=== PATIENT | female | born 1975 | race Caucasian/White ===

== ENCOUNTER 2016-12-09 09:08 | Emergency (ER) | payer OTHER ==
[2016-12-09 09:08] VITALS: BMI 32.0
[2016-12-09 09:21] VITALS: TEMP 98.8; O2SAT 98
--- NOTE | 2016-12-09 09:42 | C.PDOC ---
Time Seen by Provider: 12/09/16 09:40 Chief Complaint (Nursing): Female Genitourinary History Per: Patient History/Exam Limitations: no limitations Onset/Duration Of Symptoms: Days Current Symptoms Are (Timing): Worse Severity: Severe Pain Scale Rating Of: 3 Quality Of Discomfort: Burning, Other (itching ) Associated Symptoms: Urinary Symptoms (dysuria) Alleviating Factors: None Recent travel outside of the [place]: No Abnormal Vaginal Bleeding: No Past Medical History Vital Signs: Last Vital Signs Temp 98.8 F 12/09/16 09:19 Pulse 81 12/09/16 09:19 Resp 16 12/09/16 09:19 BP 120/83 12/09/16 09:19 Pulse Ox 98 12/09/16 09:19 - Medical History PMH: Anemia, Bronchitis, Sexually Transmitted Disease (chlamydia 2015) Other Surgeries: total abdominal Hysterectomy w/salpingectomy 08/2016 - [facility] Procedures RELEASE UTERINE SUPPORTING STRUCTURE, OPEN APPROACH (08/29/16) RESECTION OF BILATERAL FALLOPIAN TUBES, OPEN APPROACH (08/29/16) RESECTION OF CERVIX, OPEN APPROACH (08/29/16) RESECTION OF UTERUS, OPEN APPROACH (08/29/16) Family History: States: Unknown Family Hx - Social History Hx Tobacco Use: No Hx Alcohol Use: Yes Hx Substance Use: No - Immunization History Hx Tetanus Toxoid Vaccination: No Hx Influenza Vaccination: No Hx Pneumococcal Vaccination: No ED Course And Treatment O2 Sat by Pulse Oximetry: 98
--- NOTE | 2016-12-09 09:44 | C.PDOC ---
History Of Present Illness <Yulia Basurto - Last Filed: 12/09/16 11:29> <CarrollBambi - Last Filed: 12/09/16 11:35> 41 year old female with PMHx of chlamydia presents with complaint of vaginal itching and abnormal discharge for 1 week. The patient states that she applied OTC monistat cream for the past 4 days but her symptoms have not improved. Patient states that she is currently not sexually active. She came today because her discomfort was too much today. Also complains of pain with urination. Denies hematuria and pyuria. Patient had chlamydia one year ago and was given oral antibiotics. She states that she was checked and came back negative for GC/chlamydia after treatment. Patient states her symptoms are similar to past event. Denies fever, chills, ulcer, pain, and change in bowel movements. She is s/p total hysterectomy on 08/2016 and denies vaginal bleeding. She last saw her car dumper operator Dr Downing in 09/2016. (Yulia Basurto) History Per: Patient History/Exam Limitations: no limitations Onset/Duration Of Symptoms: Days Current Symptoms Are (Timing): Worse Severity: Severe Pain Scale Rating Of: 0 Quality Of Discomfort: Burning, Other (itching ) Associated Symptoms: Urinary Symptoms (dysuria). denies: Fever, Chills Alleviating Factors: None Recent travel outside of the [place]: No <Yulia Basurto - Last Filed: 12/09/16 11:29> <CarrollBambi - Last Filed: 12/09/16 11:35> Time Seen by Provider: 12/09/16 09:30 Chief Complaint (Nursing): Female Genitourinary Past Medical History Reviewed: Historical Data, Nursing Documentation, Vital Signs - Medical History PMH: Anemia, Bronchitis, Sexually Transmitted Disease (chlamydia 2015) Other Surgeries: total abdominal Hysterectomy w/salpingectomy 08/2016 Family History: States: Unknown Family Hx - Social History Hx Tobacco Use: No Hx Alcohol Use: Yes Hx Substance Use: No - Immunization History Hx Tetanus Toxoid Vaccination: No Hx Influenza Vaccination: No Hx Pneumococcal Vaccination: No <BretbambiHadleyYulia - Last Filed: 12/09/16 11:29> Vital Signs: Last Vital Signs Temp 98.8 F 12/09/16 09:19 Pulse 81 12/09/16 09:19 Resp 16 12/09/16 09:19 BP 120/83 12/09/16 09:19 Pulse Ox 98 12/09/16 11:34 - [facility] Procedures RELEASE UTERINE SUPPORTING STRUCTURE, OPEN APPROACH (08/29/16) RESECTION OF BILATERAL FALLOPIAN TUBES, OPEN APPROACH (08/29/16) RESECTION OF CERVIX, OPEN APPROACH (08/29/16) RESECTION OF UTERUS, OPEN APPROACH (08/29/16) Review Of Systems Except As Marked, All Systems Reviewed And Found Negative. Constitutional: Negative for: Fever, Chills Gastrointestinal: Negative for: Nausea, Vomiting, Abdominal Pain Genitourinary: Positive for: Dysuria, Vaginal Discharge. Negative for: Frequency, Incontinence, Hematuria, Vaginal Bleeding, Pelvic Pain <Yulia Basurto - Last Filed: 12/09/16 11:29> ED Course And Treatment O2 Sat by Pulse Oximetry: 98 Progress Note: Speculum exam performed with RN buffing and sueding machine operator present in the room. GC/chlamydia and vaginal culture performed. PE: cottage-cheese discharge in vaginal vault, cervix not present, no blood. Outer labia normal in appearance, no rash/skin changes. Reevaluation Time: 10:45 Reassessment Condition: Unchanged <Yulia Basurto - Last Filed: 12/09/16 11:29> Supervising Attending Note <Yulia Basurto - Last Filed: 12/09/16 11:29> - Supervising Attending Note Comment: RESIDENT - Attestation: I have personally seen and examined this patient.: Yes I have fully participated in the care of the patient.: Yes I have reviewed all pertinent clinical information, including history, physical exam and plan: Yes <Bambi Hodges - Last Filed: 12/09/16 11:35> - Notes: Notes:: DYSURIA, VAG DC AND ITCH X 1 WEEK. NO RELIEF W OTC MONISTAT X 4 DAYS. NO FEVER, OTHER ASSOC SX. PT DENIES SEX ACTIVE. EXAM ABOVE (Bambi Hodges) Disposition Discussed With : Bambi Hodges Doctor Will See Patient In The: Office Counseled Patient/Family Regarding: Studies Performed, Diagnosis, Need For Followup, Rx Given - Disposition Disposition Time: 11:34 - POA Present On Arrival: None <Yulia Basurto - Last Filed: 12/09/16 11:29> Counseled Patient/Family Regarding: Studies Performed, Diagnosis, Need For Followup, Rx Given - Disposition Disposition Time: 11:35 <Bambi Hodges - Last Filed: 12/09/16 11:35> - Disposition Referrals: Frankie Downing [Staff Provider] - Disposition: HOME/ ROUTINE Condition: GOOD Additional Instructions: Patient should follow up with her Communication Consultant Dr Downing within 7 days. She was instructed to take Diflucan in 72 hours if her symptoms do not improve. She should return to the ED if she experiences worsening of her symptoms or if she has any other concerns. She will be contacted once her vaginal and urine results return if abnormal. Instructions explained to patient who understands. Prescriptions: Fluconazole [Diflucan] 150 mg PO ONCE #1 tab Instructions: Vulvovaginal Candidiasis (GEN) Forms: General Discharge Instructions - Clinical Impression Clinical Impression: Candidal vaginitis
[2016-12-09 10:10] LABS: RBC URINE 1 /hpf (0-3); URINE BILIRUBIN NEGATIVE (NEGATIVE); URINE BLOOD 1+ (NEGATIVE); URINE COLOR Yellow (YELLOW); URINE GLUCOSE (UA) NORMAL (Normal); URINE KETONE NEGATIVE (NEGATIVE); URINE LEUKOCYTE ESTERASE NEG Leu/uL (Negative); URINE PROTEIN NEGATIVE (NEGATIVE); URINE UROBILINOGEN NORMAL mg/dL (0.2-1.0); WBC URINE < 1 /hpf (0-5)
[2016-12-09 11:41] VITALS: BP 110/70; PULSE 72; RESP 18
[2016-12-12 11:04] LABS: ATOPOBIUM VAGINAE Not Detected (()); BV CATEGORY NOT SUPPORTIVE (()); LACTOBACILLUS SPECIES 6.9 (()); MEGASPHAERA SPECIES Not Detected (())
== END 2016-12-09 11:41 | disposition home or self-care (01) ==
LOC: C.ER 09:08
DX: B37.3 Candidiasis of vulva and vagina (principal)

== ENCOUNTER 2017-05-06 16:15 | Emergency (ER) | payer OTHER ==
[2017-05-06 16:16] VITALS: BMI 32.0
--- NOTE | 2017-05-06 17:25 | C.PDOC ---
History Of Present Illness 41 year old female who presents to the ER with a complaint of a sore throat for the past 3 days, associated with a subjective fever yesterday. Denies cough, nausea, vomiting, or runny nose. Chief Complaint (Nursing): ENT Problem History Per: Patient History/Exam Limitations: no limitations Onset/Duration Of Symptoms: Days Current Symptoms Are (Timing): Still Present Location Of Pain: Throat Sick Contacts (Context): None Associated Symptoms: Fever (Subjective), Sore Throat. denies: Cough, Sinus Drainage, Nasal Congestion, Nausea, Vomiting Ear Symptoms: Bilateral: None Recent travel outside of the [place]: No Past Medical History Reviewed: Historical Data, Nursing Documentation, Vital Signs Vital Signs: Last Vital Signs Temp 97.9 F 05/06/17 16:21 Pulse 95 H 05/06/17 16:21 Resp 20 05/06/17 16:21 BP 134/84 05/06/17 16:21 Pulse Ox 98 05/06/17 17:32 - Medical History PMH: Anemia, Bronchitis, Sexually Transmitted Disease (chlamydia 2016) - [facility] Procedures RELEASE UTERINE SUPPORTING STRUCTURE, OPEN APPROACH (08/29/16) RESECTION OF BILATERAL FALLOPIAN TUBES, OPEN APPROACH (08/29/16) RESECTION OF CERVIX, OPEN APPROACH (08/29/16) RESECTION OF UTERUS, OPEN APPROACH (08/29/16) Family History: States: Unknown Family Hx - Social History Hx Tobacco Use: No Hx Alcohol Use: Yes Hx Substance Use: No - Immunization History Hx Tetanus Toxoid Vaccination: No Hx Influenza Vaccination: No Hx Pneumococcal Vaccination: No Review Of Systems Constitutional: Positive for: Fever (Subjective) ENT: Positive for: Throat Pain. Negative for: Nose Discharge, Nose Congestion, Throat Swelling Respiratory: Negative for: Cough Gastrointestinal: Negative for: Nausea, Vomiting Physical Exam - Physical Exam Appears: Non-toxic, No Acute Distress Skin: Normal Color, Warm, Dry Head: Atraumatic, Normacephalic Ear(s): Bilateral: Normal Oral Mucosa: Moist Throat: Normal, No Erythema, No Exudate Neck: Normal, Supple Lymphatic: Adenopathy Chest: Symmetrical, No Tenderness Cardiovascular: Rhythm Regular, No Murmur Respiratory: Normal Breath Sounds, No Rales, No Rhonchi, No Wheezing Gastrointestinal/Abdominal: Soft, No Tenderness Neurological/Psych: Oriented x3, Normal Speech, Normal Cognition ED Course And Treatment O2 Sat by Pulse Oximetry: 98 (Room air) Pulse Ox Interpretation: Normal Progress Note: Motrin and zithromax administered. On reevaluation, patient's feels better, will discharge with instructions to follow up with PMD. Disposition - Disposition Disposition: HOME/ ROUTINE Disposition Time: 18:19 Condition: STABLE Additional Instructions: Follow up with PMD within 1-2 days. Return to Ed if feel worse. Prescriptions: Fluticasone Nasal [Flonase] 1 spr NS BID #1 spr Ibuprofen [Motrin Tab] 600 mg PO Q8 #30 tab Azithromycin [Zithromax] 250 mg PO DAILY #4 tab Instructions: Upper Respiratory Infection (ED) Forms: [employer] (Togolese) - Clinical Impression Clinical Impression: URI (upper respiratory infection) - Scribe Statement The provider has reviewed the documentation as recorded by the Scribe Isra Penaloza All medical record entries made by the Scribe were at my direction and personally dictated by me. I have reviewed the chart and agree that the record accurately reflects my personal performance of the history, physical exam, medical decision making, and the department course for this patient. I have also personally directed, reviewed, and agree with the discharge instructions and disposition.
[2017-05-06 18:27] VITALS: BP 132/78; PULSE 87; RESP 15; TEMP 99.2
[2017-05-06 22:01] VITALS: O2SAT 98
== END 2017-05-06 18:26 | disposition home or self-care (01) ==
LOC: C.ER 16:15
DX: J06.9 Acute upper respiratory infection, unspecified (principal)

== ENCOUNTER 2017-08-14 08:05 | Emergency (ER) | payer OTHER ==
[2017-08-14 08:05] VITALS: BMI 32.0
[2017-08-14] MEDS ORDERED: Lactated Ringer's 1,000 ML IV STA (08:41)
[2017-08-14 08:58] LABS: URINE BILIRUBIN NEGATIVE (NEGATIVE); URINE BLOOD NEGATIVE (NEGATIVE); URINE COLOR Straw (YELLOW); URINE GLUCOSE (UA) NORMAL (Normal); URINE KETONE NEGATIVE (NEGATIVE); URINE LEUKOCYTE ESTERASE NEG Leu/uL (Negative); URINE PROTEIN NEGATIVE (NEGATIVE); URINE UROBILINOGEN NORMAL mg/dL (0.2-1.0); WBC URINE < 1 /hpf (0-5)
[2017-08-14] MEDS ORDERED: Lactated Ringer's 1,000 ML ONE (09:19)
--- NOTE | 2017-08-14 09:23 | C.PDOC ---
History Of Present Illness 41 year year old female presents to ED for evaluation of persistent lower abdominal pain, lower back pain, and dysuria for the past several days. Pt also complaints of headache since this morning. Notes having subjective fever yesterday. Notes being seen here several weeks ago for similar symptoms and was diagnosed with UTI. Denies history of migraine, blurred vision, photophobia, nausea, vomiting, change in sensation, dizziness, or any other associated symptoms at this time. Chief Complaint (Nursing): Female Genitourinary History Per: Patient History/Exam Limitations: no limitations Onset/Duration Of Symptoms: Days Current Symptoms Are (Timing): Still Present Quality Of Discomfort: "Pain" Associated Symptoms: Fever, Back Pain, Urinary Symptoms. denies: Nausea, Vomiting, Diarrhea, Loss Of Appetite, Constipation Alleviating Factors: None Recent travel outside of the [place]: No Additional History Per: Patient Abnormal Vaginal Bleeding: No Past Medical History Reviewed: Historical Data, Nursing Documentation, Vital Signs Vital Signs: Last Vital Signs Temp 98.2 F 08/14/17 11:56 Pulse 76 08/14/17 11:56 Resp 18 08/14/17 11:56 BP 133/85 08/14/17 11:56 Pulse Ox 99 08/14/17 11:56 - Medical History PMH: Anemia, Bronchitis, Sexually Transmitted Disease (chlamydia 2016) - [facility] Procedures RELEASE UTERINE SUPPORTING STRUCTURE, OPEN APPROACH (08/29/16) RESECTION OF BILATERAL FALLOPIAN TUBES, OPEN APPROACH (08/29/16) RESECTION OF CERVIX, OPEN APPROACH (08/29/16) RESECTION OF UTERUS, OPEN APPROACH (08/29/16) Family History: States: Unknown Family Hx - Social History Hx Tobacco Use: No Hx Alcohol Use: Yes Hx Substance Use: No - Immunization History Hx Tetanus Toxoid Vaccination: No Hx Influenza Vaccination: No Hx Pneumococcal Vaccination: No Review Of Systems Except As Marked, All Systems Reviewed And Found Negative. Constitutional: Positive for: Fever. Negative for: Chills Gastrointestinal: Positive for: Abdominal Pain. Negative for: Nausea, Vomiting Genitourinary: Positive for: Dysuria. Negative for: Frequency, Hematuria Musculoskeletal: Positive for: Back Pain Neurological: Positive for: Headache. Negative for: Weakness, Numbness, Dizziness Physical Exam - Physical Exam Appears: Non-toxic, No Acute Distress Skin: Normal Color, Warm, Dry Head: Atraumatic, Normacephalic Eye(s): bilateral: Normal Inspection, PERRL, EOMI Oral Mucosa: Moist Neck: Normal ROM, Supple Cardiovascular: Rhythm Regular, No Murmur Respiratory: Normal Breath Sounds, No Rales, No Rhonchi, No Wheezing Gastrointestinal/Abdominal: Soft, No Tenderness, No Guarding, No Rebound Back: Normal Inspection, No CVA Tenderness Extremity: Normal ROM, No Swelling Neurological/Psych: Oriented x3, Normal Speech, Normal Cognition, Normal Motor, Normal Sensation ED Course And Treatment - Laboratory Results Result Diagrams: 08/14/17 09:29 08/14/17 09:29 O2 Sat by Pulse Oximetry: 99 (RA) Pulse Ox Interpretation: Normal - CT Scan/US Pelvis ultrasound Other Rad Studies (CT/US): Read By Radiologist, Radiology Report Reviewed CT/US Interpretation: Accession No. : [id number]. Patient Name / ID : [id number] / [id number]. Exam Date : 08/14/2017 10:07:03 ( Approved ). Study Comment : Sex / Age : F / [id number]. Creator : Suleman Delgado MD. Dictator : Suleman Delgado MD. Guest Experience Representative : Customer Supply Coordinator : Suleman Delgado MD. Approver2 : Report Date : 08/14/2017 10:40:36. My Comment : . HISTORY: pelvic pain. COMPARISON: None available. TECHNIQUE: Transabdominal and transvaginal. FINDINGS: UTERUS: Status post hysterectomy. ENDOMETRIUM: Status post hysterectomy. CERVIX: Status post hysterectomy. RIGHT OVARY: Measures 3.1 x 2.3 x 3.2 cm. No solid mass. Normal flow. LEFT OVARY: Measures 4.3 x 3.7 x 3.7 cm. No solid mass. Normal flow. Complex septated cyst measuring 2.9 x 2.7 x 2.5 cm. Recommend followup transvaginal pelvic ultrasound examination in 6-8 weeks. Likely hemorrhagic cyst. FREE FLUID: No significant free fluid noted. OTHER FINDINGS: None. IMPRESSION: Complex 2.9 cm left ovarian septated cyst. Likely hemorrhagic cyst. Followup transvaginal pelvic ultrasound examination is advised in 6-8 weeks. Status post hysterectomy. Progress Note: Blood work, UA, pelvis ultrasound ordered and reviewed. Pt was given Reglan. On reassessment, patient is resting comfortably, with improvement of headache, abdominal and back pain. Patient remains afebrile, with no meningeal signs, bony tenderness, extremity numbness or weakness. Abdomen remains soft and non-tender. Patient has no neurologic deficit. Patient is being discharged home and is being advised to follow up with physician/clinic in 1-2 days. Disposition - Disposition Referrals: Frankie Downing [Staff Provider] - Disposition: HOME/ ROUTINE Disposition Time: 11:49 Condition: STABLE Additional Instructions: Follow up with your OBGYN within 1-2 days. Return to ED if feel worse. Prescriptions: Naproxen [Naprosyn] 1 tab PO BID PRN #25 tab PRN Reason: Pain Instructions: Ovarian Cyst (ED), General Headache (ED) Forms: [employer] (South Korean) - Clinical Impression Clinical Impression: Ovarian cyst, Headache - PA / BANKING ASSISTANT / Resident Statement MD/DO has reviewed & agrees with the documentation as recorded. - Scribe Statement The provider has reviewed the documentation as recorded by the Víctoribcathleen Gamez All medical record entries made by the Víctoribcathleen were at my direction and personally dictated by me. I have reviewed the chart and agree that the record accurately reflects my personal performance of the history, physical exam, medical decision making, and the department course for this patient. I have also personally directed, reviewed, and agree with the discharge instructions and disposition.
[2017-08-14 09:38] LABS: BASO # 0.1 K/uL (0.0-0.2); BASO % 0.8 % (0.0-2.0); EOS # 0.1 K/uL (0.0-0.7); EOS % 1.6 % (0.0-4.0); HEMATOCRIT 42.4 % (34.0-47.0); MEAN CELL VOLUME 86.5 fL (81.0-99.0); MEAN CORPUSCULAR HEMOGLOBIN 28.9 pg (27.0-31.0); MEAN CORPUSCULAR HGB CONC 33.4 g/dL (33.0-37.0); MEAN PLATELET VOLUME 7.9 fL (7.2-11.7); MONO # 0.7 K/uL (0.0-0.8); MONO % 8.2 % (0.0-10.0); NRBC % 0.1 % (0.0-2.0); RED CELL DISTRIBUTION WIDTH 14.8 % (11.5-14.5); WHITE BLOOD COUNT 8.7 K/uL (4.8-10.8)
[2017-08-14 09:45] LABS: ALB/GLOB RATIO 1.4 (1.0-2.1); BILIRUBIN,TOTAL 0.9 mg/dL (0.2-1.3); CALCIUM 8.8 mg/dl (8.6-10.4); GFR AFRICAN-AMERICAN > 60; GLUCOSE,RANDOM 92 mg/dL (65-105); TOTAL PROTEIN 7.1 g/dL (6.3-8.3)
[2017-08-14 09:49] LABS: ALKALINE PHOSPHATASE 52 U/L (38-126); ALT/SGPT 47 U/L (9-52); AST/SGOT 29 U/L (14-36); BLOOD UREA NITROGEN 8 mg/dL (7-17); CARBON DIOXIDE 25 mmol/L (22-30); CHLORIDE 104 mmol/L (98-107); POTASSIUM 4.7 mmol/L (3.6-5.2); SODIUM 137 mmol/L (132-148)
--- NOTE | 2017-08-14 10:42 | US ---
HISTORY: pelvic pain COMPARISON: None available. TECHNIQUE: Transabdominal and transvaginal FINDINGS: UTERUS: Status post hysterectomy ENDOMETRIUM: Status post hysterectomy CERVIX: Status post hysterectomy RIGHT OVARY: Measures 3.1 x 2.3 x 3.2 cm. No solid mass. Normal flow. LEFT OVARY: Measures 4.3 x 3.7 x 3.7 cm. No solid mass. Normal flow. Complex septated cyst measuring 2.9 x 2.7 x 2.5 cm. Recommend followup transvaginal pelvic ultrasound examination in 6-8 weeks. Likely hemorrhagic cyst. FREE FLUID: No significant free fluid noted. OTHER FINDINGS: None. IMPRESSION: Complex 2.9 cm left ovarian septated cyst. Likely hemorrhagic cyst. Followup transvaginal pelvic ultrasound examination is advised in 6-8 weeks. Status post hysterectomy.
[2017-08-14 10:49] VITALS: O2SAT 99
[2017-08-14 11:56] VITALS: BP 133/85; PULSE 76; RESP 18; TEMP 98.2
== END 2017-08-14 12:10 | disposition home or self-care (01) ==
LOC: C.ER 08:05
DX: R51 Headache (principal); N83.202 Unspecified ovarian cyst, left side; Z90.710 Acquired absence of both cervix and uterus
CPT/HCPCS: 76830; 76856; 80053; 81001; 84703; 85025; 87086; 96360; 99285; J2765; J7120

== ENCOUNTER 2018-01-15 07:02 | Emergency (ER) | payer OTHER ==
[2018-01-15 07:08] VITALS: BMI 32.9
[2018-01-15 07:11] VITALS: TEMP 97.7; O2SAT 100
[2018-01-15 08:11] LABS: BASO # 0.1 K/uL (0.0-0.2); BASO % 0.7 % (0.0-2.0); EOS # 0.2 K/uL (0.0-0.7); EOS % 1.7 % (0.0-4.0); HEMOGLOBIN 13.9 g/dL (11.0-16.0); LYMPH % 20.2 % (20.0-40.0); MEAN CELL VOLUME 85.1 fL (81.0-99.0); MEAN CORPUSCULAR HEMOGLOBIN 29.6 pg (27.0-31.0); MEAN CORPUSCULAR HGB CONC 34.8 g/dL (33.0-37.0); MEAN PLATELET VOLUME 7.6 fL (7.2-11.7); MONO # 0.8 K/uL (0.0-0.8); MONO % 7.7 % (0.0-10.0); NEUT # 7.1 K/uL (1.8-7.0); NEUT % 69.7 % (50.0-75.0); NRBC % 0.1 % (0.0-2.0); RBC 4.71 Mil/uL (3.80-5.20); RED CELL DISTRIBUTION WIDTH 15.7 % (11.5-14.5); WHITE BLOOD COUNT 10.1 K/uL (4.8-10.8)
[2018-01-15 08:26] LABS: HCG,QUALITATIVE URINE NEGATIVE (NEGATIVE)
[2018-01-15 08:31] LABS: URINE BILIRUBIN NEGATIVE (NEGATIVE); URINE BLOOD 1+ (NEGATIVE); URINE CLARITY Clear (Clear); URINE COLOR Yellow (YELLOW); URINE GLUCOSE (UA) NORMAL (Normal); URINE LEUKOCYTE ESTERASE NEG Leu/uL (Negative); URINE PROTEIN NEGATIVE (NEGATIVE); URINE UROBILINOGEN NORMAL mg/dL (0.2-1.0)
[2018-01-15 08:38] LABS: ALB/GLOB RATIO 1.1 (1.0-2.1); ALBUMIN 3.8 g/dL (3.5-5.0); ALT/SGPT 23 U/L (9-52); AST/SGOT 28 U/L (14-36); BLOOD UREA NITROGEN 9 mg/dL (7-17); CALCIUM 8.7 mg/dl (8.6-10.4); GFR AFRICAN-AMERICAN > 60; GFR NON-AFRICAN AMERICAN > 60; LIPASE 467 U/L (23-300)
[2018-01-15 08:40] LABS: SQUAMOUS EPITHIAL 5 /hpf (0-5)
[2018-01-15] MEDS ORDERED: Iodixanol 320 MG/ML 100 ML BOTTLE IV ONE (09:09)
--- NOTE | 2018-01-15 10:15 | CT ---
PROCEDURE: CT Abdomen and Pelvis with contrast HISTORY: pain COMPARISON: None. TECHNIQUE: Contrast dose: 100 mL Visipaque 320 Radiation dose: Total exam DLP = 1113.14 mGy-cm. This CT exam was performed using one or more of the following dose reduction techniques: Automated exposure control, adjustment of the mA and/or kV according to patient size, and/or use of iterative reconstruction technique. FINDINGS: LOWER THORAX: Unremarkable. LIVER: Unremarkable. No gross lesion or ductal dilatation. GALLBLADDER AND BILE DUCTS: Unremarkable. PANCREAS: Unremarkable. No gross lesion or ductal dilatation. SPLEEN: Unremarkable. ADRENALS: Unremarkable. No mass. KIDNEYS AND URETERS: Cortical scar upper pole right kidney. Nonspecific. No renal mass, calculus or hydronephrosis. VASCULATURE: Unremarkable. No aortic aneurysm. BOWEL: Acute diverticulitis of the sigmoid colon. Diverticulosis of the descending and sigmoid colon. No pericolonic abscess. No pneumoperitoneum. No other abnormal bowel loops. APPENDIX: Normal appendix. PERITONEUM: Unremarkable. No free fluid. No free air. LYMPH NODES: Unremarkable. No enlarged lymph nodes. BLADDER: Grossly normal. Suboptimally distended. REPRODUCTIVE: Status post hysterectomy. BONES: No acute fracture. OTHER FINDINGS: None. IMPRESSION: Acute diverticulitis of the sigmoid colon. No abscess. Diverticulosis of the descending and sigmoid colon. No pneumoperitoneum. Status post hysterectomy. No additional abnormality.
[2018-01-15] MEDS ORDERED: metroNIDAZOLE IV 500 mg/100 ml 500 MG/100 ML BAG IV SCH (10:30)
[2018-01-15] MEDS ORDERED: metroNIDAZOLE IV 500 mg/100 ml 500 MG/100 ML BAG IVPB STA (10:31)
[2018-01-15] MEDS ORDERED: metroNIDAZOLE IV 500 mg/100 ml 500 MG/100 ML BAG ONE (10:37)
--- NOTE | 2018-01-15 10:52 | C.PDOC ---
History Of Present Illness 42 y/o female presents to ED with c/o left sided abdominal pain associated with diarrhea and vomiting since yesterday. Patient states she had similar episode on 08/2017 and was diagnosed with ovarian cyst. Patient denies fever, back pain , dysuria, urinary frequency, vaginal bleeding, vaginal discharge or any other complaints at this time. Time Seen by Provider: 01/15/18 07:24 Chief Complaint (Nursing): Abdominal Pain History Per: Patient History/Exam Limitations: no limitations Onset/Duration Of Symptoms: Days Current Symptoms Are (Timing): Still Present Location Of Pain/Discomfort: Diffuse Past Medical History Reviewed: Historical Data, Nursing Documentation, Vital Signs Vital Signs: Last Vital Signs Temp 97.7 F 01/15/18 07:08 Pulse 58 L 01/15/18 11:03 Resp 18 01/15/18 11:03 BP 143/81 01/15/18 11:03 Pulse Ox 100 01/15/18 11:44 - Medical History PMH: Anemia, Bronchitis, Sexually Transmitted Disease (chlamydia 2015) Surgical History: No Surg Hx - [facility] Procedures RELEASE UTERINE SUPPORTING STRUCTURE, OPEN APPROACH (08/29/16) RESECTION OF BILATERAL FALLOPIAN TUBES, OPEN APPROACH (08/29/16) RESECTION OF CERVIX, OPEN APPROACH (08/29/16) RESECTION OF UTERUS, OPEN APPROACH (08/29/16) Family History: States: No Known Family Hx - Social History Hx Tobacco Use: No Hx Alcohol Use: Yes Hx Substance Use: No - Immunization History Hx Tetanus Toxoid Vaccination: No Hx Influenza Vaccination: No Hx Pneumococcal Vaccination: No Review Of Systems Constitutional: Negative for: Fever, Chills Gastrointestinal: Positive for: Vomiting, Abdominal Pain, Diarrhea Genitourinary: Negative for: Vaginal Discharge, Vaginal Bleeding Skin: Negative for: Rash Physical Exam - Physical Exam Appears: Non-toxic, No Acute Distress Skin: Warm, Dry, No Rash Head: Atraumatic, Normacephalic Eye(s): bilateral: Normal Inspection, EOMI Nose: Normal Oral Mucosa: Moist Neck: Normal ROM, Supple Chest: Symmetrical Cardiovascular: Rhythm Regular Respiratory: Normal Breath Sounds, No Accessory Muscle Use, No Rales, No Rhonchi , No Wheezing Gastrointestinal/Abdominal: Soft, Tenderness (LLQ), No Guarding, No Rebound Back: No CVA Tenderness, No Vertebral Tenderness Extremity: Normal ROM, Capillary Refill (<2 seconds) Neurological/Psych: Oriented x3, Normal Speech, Normal Cognition ED Course And Treatment - Laboratory Results Result Diagrams: 01/15/18 08:06 01/15/18 08:06 O2 Sat by Pulse Oximetry: 100 (RA) Pulse Ox Interpretation: Normal - CT Scan/US CT ABD/PEL Other Rad Studies (CT/US): Read By Radiologist, Radiology Report Reviewed CT/US Interpretation: PROCEDURE: CT Abdomen and Pelvis with contrast. HISTORY : pain. COMPARISON: None. TECHNIQUE: Contrast dose: 100 mL Visipaque 320. Radiation dose: Total exam DLP = 1113.14 mGy-cm. This CT exam was performed using one or more of the following dose reduction techniques: Automated exposure control, adjustment of the mA and/or kV according to patient size, and/ or use of iterative reconstruction technique. FINDINGS: LOWER THORAX: Unremarkable. LIVER: Unremarkable. No gross lesion or ductal dilatation. GALLBLADDER AND BILE DUCTS: Unremarkable. PANCREAS: Unremarkable. No gross lesion or ductal dilatation. SPLEEN: Unremarkable. ADRENALS: Unremarkable. No mass. KIDNEYS AND URETERS: Cortical scar upper pole right kidney. Nonspecific. No renal mass, calculus or hydronephrosis. VASCULATURE: Unremarkable. No aortic aneurysm. Progress Note: Blood work, PO challenge ordered. Cipro, Metronidazole IV, Toradol and Zofran administered. On re eval pt feels better. PO challenge ordered. On re-evlauation, pt notes pain improved. Remains afebrile. TOlerating PO. Abdomen soft. WBC WNL. Discussed with pt signs and symptoms of concern to returnt o ER if symtpoms persist or worsen. Instructed to f/u with GI specialist in 1-2 days. Disposition - Disposition Referrals: Darrian Michele [Staff Provider] - Disposition: HOME/ ROUTINE Disposition Time: 10:48 Condition: STABLE Additional Instructions: Follow up with your PMD/GI specialist in 1-2 days. If you get a fever, bloody stool, vomiting, or abdomen pain worsens return right awaye. Return to ER if symptoms persist or worsen. Prescriptions: Ciprofloxacin HCl [Cipro] 500 mg PO BID #14 tab Metronidazole [Flagyl] 500 mg PO BID #14 tab Instructions: Diverticulitis (DC) Forms: [employer] (Icelandic) - Clinical Impression Clinical Impression: Diverticulitis - PA / UNIVERSITY ADMINISTRATIVE ASSISTANT / Resident Statement MD/DO has reviewed & agrees with the documentation as recorded. - Scribe Statement The provider has reviewed the documentation as recorded by the Víctoribcathleen Lance All medical record entries made by the Immanuel were at my direction and personally dictated by me. I have reviewed the chart and agree that the record accurately reflects my personal performance of the history, physical exam, medical decision making, and the department course for this patient. I have also personally directed, reviewed, and agree with the discharge instructions and disposition.
[2018-01-15 11:04] VITALS: BP 143/81; PULSE 58; RESP 18
== END 2018-01-15 11:35 | disposition home or self-care (01) ==
LOC: C.ER 07:02
DX: K57.32 Diverticulitis of large intestine without perforation or abscess without bleeding (principal)
CPT/HCPCS: 74177; 80053; 81001; 83690; 84703; 85025; 96365; 96375; 99285; J1885; J2405; Q9967